=== PATIENT | male | born 1985 | race Caucasian/White ===

== ENCOUNTER 2019-05-09 14:41 | Outpatient (CLI) | payer MEDICAID | END 2019-05-09 14:42 | disposition critical access hospital (66) | LOC: EMS 14:41 | PROVIDERS: ATTEND Surgery | DX: S06.9X1A Unspecified intracranial injury with loss of consciousness of 30 minutes or less, initial encounter (principal); M54.9 Dorsalgia, unspecified; S69.92XA Unspecified injury of left wrist, hand and finger(s), initial encounter; V86.56XA Driver of dirt bike or motor/cross bike injured in nontraffic accident, initial encounter; Y92.89 Other specified places as the place of occurrence of the external cause | CPT/HCPCS: A0425; A0429; A0999 ==

== ENCOUNTER 2019-05-09 15:08 | Emergency (ER) | payer MEDICAID ==
[2019-05-09] MEDS ORDERED: fentaNYL 100 MCG/2 ML VIAL IVP STA ×2 (15:15→17:25)
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
--- NOTE | 2019-05-09 16:02 | XRAY Report ---
Reason: chest pain Procedure Date: 05/09/2019 Accession Number: [id number] / [id number] Procedure: XR - Chest 1 View X-Ray CPT Code: 80573 FULL RESULT: EXAM: CHEST RADIOGRAPHY EXAM DATE: 05/09/2019 03:18 PM. CLINICAL HISTORY: Chest pain. COMPARISON: None. TECHNIQUE: 1 view. FINDINGS: Lungs/Pleura: No focal opacities evident. No pleural effusion. No pneumothorax. Mediastinum: The heart size is normal. The trachea is midline. Other: None. IMPRESSION: Negative for an acute cardiopulmonary abnormality. RADIA
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
[2019-05-09] MEDS ORDERED: HYDROmorphone 1 MG/ML CARPUJECT IVP STA (16:44)
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
[2019-05-09 17:40] LABS: BASOPHILS # (AUTO) 0.1 10^3/uL (0.0-0.1); BASOPHILS % (AUTO) 0.8 %; EOSINOPHILS # (AUTO) 0.2 10^3/uL (0.0-0.7); EOSINOPHILS % (AUTO) 1.7 %; HGB - HEMOGLOBIN 13.9 g/dL (14.0-18.0); LYMPHOCYTES # (AUTO) 2.3 10^3/uL (1.5-3.5); LYMPHOCYTES % (AUTO) 22.5 %; MEAN CORPUSCULAR HEMOGLOBIN 29.1 pg (27.0-31.0); MEAN CORPUSCULAR HGB CONC 32.9 g/dL (32.0-36.0); MEAN CORPUSCULAR VOLUME 88.5 fL (80.0-94.0); MEAN PLATELET VOLUME 10.9 fL (7.4-11.4); MONOCYTES # (AUTO) 0.6 10^3/uL (0.0-1.0); MONOCYTES % (AUTO) 5.7 %; NEUTROPHILS # (AUTO) 6.9 10^3/uL (1.5-6.6); NEUTROPHILS % (AUTO) 68.8 %; PLT - PLATELET COUNT 242 10^3/uL (130-450); RED BLOOD COUNT 4.77 10^6/uL (4.70-6.10); RED CELL DISTRIBUTION WIDTH 13.2 % (12.0-15.0); WHITE BLOOD COUNT 10.1 x10^3/uL (4.8-10.8)
[2019-05-09 17:44] LABS: PT - PROTHROMBIN TIME 11.5 secs (9.9-12.6)
[2019-05-09 17:47] LABS: ALBUMIN 4.4 g/dL (3.2-5.5); ALBUMIN/GLOBULIN RATIO 1.6 (1.0-2.2); ALKALINE PHOSPHATASE 61 IU/L (42-121); ALT ALANINE AMINOTRANSFERASE 21 IU/L (10-60); AST ASPARTATE AMINOTRANSFERASE 26 IU/L (10-42); BILIRUBIN,TOTAL 0.7 mg/dL (0.2-1.0); BUN - BLOOD UREA NITROGEN 20 mg/dL (6-20); CALCIUM 9.7 mg/dL (8.5-10.3); CARBON DIOXIDE - CO2 26 mmol/L (21-32); CHLORIDE 106 mmol/L (101-111); CREATININE 1.1 mg/dL (0.6-1.2); GFR - MDRD 76 (>89); GLUCOSE 84 mg/dL (70-100); LIPASE 32 U/L (22-51); SODIUM 141 mmol/L (135-145); TOTAL PROTEIN 7.2 g/dL (6.7-8.2)
[2019-05-09] MEDS ORDERED: IOVERSOL 320 100 ML VIAL IVP ONE ×2 (17:48→17:57)
[2019-05-09 17:54] LABS: PARTIAL THROMBOPLASTIN TIME 27.3 secs (24.9-33.3)
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
[2019-05-09 19:34] VITALS: BP 135/81
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
[2019-05-09] MEDS ORDERED: oxyCODONE/ACET 5/325 Prepack 4 PO STA (19:59)
== END 2019-05-09 20:15 | disposition home or self-care (01) ==
LOC: ED 15:08
DX: S06.0X9A Concussion with loss of consciousness of unspecified duration, initial encounter (principal); S22.052A Unstable burst fracture of T5-T6 vertebra, initial encounter for closed fracture; S62.347A Nondisplaced fracture of base of fifth metacarpal bone, left hand, initial encounter for closed fracture; S52.502A Unspecified fracture of the lower end of left radius, initial encounter for closed fracture; S52.615A Nondisplaced fracture of left ulna styloid process, initial encounter for closed fracture; V86.56XA Driver of dirt bike or motor/cross bike injured in nontraffic accident, initial encounter; Y93.89 Activity, other specified; M50.323 Other cervical disc degeneration at C6-C7 level; R42 Dizziness and giddiness; F17.200 Nicotine dependence, unspecified, uncomplicated
CPT/HCPCS: 29105; 36415; 70450; 71045; 71260; 72070; 72125; 72128; 72131; 73130; 74177; 80053; 80320; 83690; 85025; 85610; 85730; 96374; 96375; 96376; 99284; 99291; J1170; Q9967